=== PATIENT | female | born 1995 | race American Indian/Alaskan Native ===

== ENCOUNTER 2017-01-29 06:00 | Inpatient (IN) | payer MEDICAID, OTHER ==
[~2017-01-29 06:00] MED LIST: Acetaminophen 325 MG Tab PO PRN; Acetaminophen/oxyCODONE 325-5 MG Tab PO PRN; Carboprost Tromethamine 250 MCG/1 ML Amp IM ONE; Citric Acid/Sodium Citrate Solution 30 ML Cup PO ONE; Methylergonovine 0.2 MG/1 ML Amp IM PRN; Misoprostol 400 MCG (4 X 100 MCG TAB) RECTAL PRN; Naloxone 2 MG/2 ML Syringe IVPUSH PRN; Ondansetron 4 MG/2 ML SDV IV PRN; Oxytocin/Normal Saline 30 UNIT/500 ML BAG IV SCH; Simethicone 80 MG Tab.Chew PO PRN; ceFAZolin 2 GM in Premix Bag 1 BAG IV ONE; diphenhydrAMINE 50 MG/ML SDV IVPUSH PRN; ePHEDrine 50 MG/ML SDV IVPUSH PRN
[2017-01-29] MEDS ORDERED: Oxytocin/Normal Saline 60 UNIT/1,000 ML BAG ONE (06:28)
[2017-01-29] MEDS: Lactated Ringers 1,000 ML IV SCH ×4 (06:35→20:02)
[2017-01-29] MEDS ORDERED: fentaNYL 100 MCG/2 ML SDV ONE ×2 (07:22→10:20)
[2017-01-29] MEDS ORDERED: ePHEDrine 50 MG/ML SDV ONE (07:23)
[2017-01-29] MEDS ORDERED: Ondansetron 4 MG/2 ML SDV ONE (07:23)
[2017-01-29] MEDS ORDERED: Morphine PF 5 MG/10 ML SDV ONE (07:23)
[2017-01-29] MEDS ORDERED: Phenylephrine 1% 10 MG/ML SDV ONE ×2 (07:23→07:24)
[2017-01-29] MEDS ORDERED: Glycopyrrolate 0.2 MG/ML 2 ML SDV ONE (07:24)
[2017-01-29] MEDS ORDERED: Misoprostol 400 MCG (4 X 100 MCG TAB) ONE (08:25)
[2017-01-29] MEDS ORDERED: Carboprost Tromethamine 250 MCG/1 ML Amp ONE (08:25)
[2017-01-29] MEDS ORDERED: HYDROmorphone 1 MG/ML Syringe ONE (08:52)
[2017-01-29] MEDS ORDERED: Morphine PF 150 MG/30 ML PCA Syringe IV SCH (09:15)
[2017-01-29] MEDS ORDERED: Oxytocin/Normal Saline 30 UNIT/500 ML BAG IV ONE (09:29)
[2017-01-29] MEDS ORDERED: Lactated Ringers 1,000 ML IV ONE (10:20)
[2017-01-29] MEDS ORDERED: Morphine PF 5 MG/10 ML SDV ITHECAL ONE (10:20)
[2017-01-29] MEDS ORDERED: Carboprost Tromethamine 250 MCG/1 ML Amp IM ONE (10:20)
[2017-01-29] MEDS ORDERED: Glycopyrrolate 0.2 MG/ML 2 ML SDV IV ONE (10:20)
[2017-01-29] MEDS ORDERED: HYDROmorphone 1 MG/ML Syringe IV ONE (10:20)
[2017-01-29] MEDS ORDERED: Ketorolac 30 MG/ML SDV IVPUSH ONE (10:20)
[2017-01-29] MEDS ORDERED: ePHEDrine 50 MG/ML SDV IV ONE (10:20)
[2017-01-29] MEDS ORDERED: Ondansetron 4 MG/2 ML SDV IV ONE (10:20)
--- NOTE | 2017-01-29 14:50 | PCM.POSTAN ---
POST ANESTHESIA ASSESSMENT - MENTAL STATUS Mental Status: alert - VITAL SIGNS Pulse Rate: 67 SaO2: 100 Blood Pressure: 117/71 Temperature: 36.1 C - RESPIRATORY Respiratory Status: respiratory rate WNL - CARDIOVASCULAR CV Status: pulse rate WNL - GASTROINTESTINAL GI Status: nauseau - PAIN Pain Score: 2 - POST OP HYDRATION Hydration Status: adequate & stable (pt without c/o PDPH, c/o mild surgical site pain around 2/10 no meds requested. Mild nausea. No c/o back pain. Pt states she is satisfied with her anesthesia care. No post anesthesia complications noted.)
[2017-01-29] MEDS: Ketorolac 30 MG/ML SDV IVPUSH SCH ×2 (15:12→21:23)
--- NOTE | 2017-01-29 15:18 | OR ---
DATE: 01/29/2017 PREOPERATIVE DIAGNOSES: 1. Intrauterine at 39 and 3/7th weeks, confirmed with 8 and 6/7th week ultrasound. 2. Previous x1, request repeat low transverse . 3. Impaired glucose tolerance. 4. Rh negative. 5. Group B Streptococcus negative. 6. Close interval . 7. Anemia of with hemoglobin 8.5 upon admission. 8. G2, P1-0-0-1. 9. Keloid type scar-Pfannenstiel. POSTOPERATIVE DIAGNOSES: 1. Intrauterine at 39 and 3/7th weeks, confirmed with 8 and 6/7th week ultrasound-delivered. 2. Previous x1, request repeat low transverse 3. Impaired glucose tolerance. 4. Rh negative. 5. Group B Streptococcus negative. 6. Close interval . 7. Anemia of with hemoglobin 8.5 upon admission. 8. G2, P1-0-0-1. 9. Spinal anesthetic used with increasing pain shortly prior to delivery. Fentanyl 100 mcg was given less than a minute prior to delivery, and then after delivery required morphine for pain. 10.Scarring significantly superior to fascial layer. 11.Uterine atony, requiring Hemabate. PROCEDURE PERFORMED: NST and repeat low transverse . [employer] PROFESSOR: Jacquie Castellon MD and Sara Strong MS III. ANESTHESIA/ANALGESIA: Spinal followed by fentanyl within 1 minute of delivery and morphine after delivery. ESTIMATED BLOOD LOSS: 700 mL. IV FLUIDS: 1700 mL. URINE OUTPUT: 400 mL and clear yellow. START: 0815 hours. UTERINE INCISION: 0821 hours. DELIVERY: 0821 hours. STOP: 0842 hours. FINDING: Male, scores 8 and 9, weighing 9 pounds 5 ounces with extensive scar tissue superficial to the fascia. DESCRIPTION OF PROCEDURE IN DETAIL: After proper consent was obtained, the patient brought to the operating room, where spinal anesthetic was administered. A Arias was placed preop under sterile conditions. Abdomen was prepped and draped in normal sterile fashion, with the patient placed in the supine position with left lateral tilt. Skin testing was done with Allis clamps. No pain was felt. Subsequently, a skin incision was made on lower abdomen in transverse Pfannenstiel-type fashion over previous scar. This was carried down the fascia with significant scarring noted around the area and scored in midline. Subcutaneous tissue was raked laterally with Briggs retractor and fascial incision was extended in transverse fashion using curved Gerard's. Celestina clamps x2 were used to grasp the superior aspect of fashion and rectus muscles dissected from fascia using sharp blunt technique. In a similar fashion, Celestina clamps x2 were used to grasp the inferior portion and pyramidalis muscle was dissected from fascia using sharp and blunt technique. Rectus muscles were in the midline with blunt technique. Abdominal cavity was entered in blunt technique and incision was extended superiorly and inferiorly using blunt technique. Roberto O large retractor was then introduced and used. There was noted to be significant pain after getting through the fascial layer, fentanyl was given per [employer], less than a minute prior to delivery, I believe was 100 mcg. Please see his notes for further details. Vesicouterine peritoneum was then identified and incised in transverse fashion using Metzenbaum scissors and bladder flap was made digitally. A curvilinear incision was made on lower uterine segment at 0821 hours. Uterus was entered sharply and uterine incision was extended in transverse fashion using blunt technique. Bulging bag of water was ruptured with Allis clamps. vertex was then delivered through the incision followed by rest of the infant without difficulty. Mouth and nares were suctioned. Cord was doubly clamped cut and was brought over to team. Then, approximately 10 mL cord blood was obtained for labs. Placenta then delivered with gentle cord traction and fundal massage. Uterine cavity was then cleared of all blood clots and debris with lap sponge. Browning clamps were used to grasp the uterine incision, this was closed in a running locked fashion, tied at lateral margins with 1-0 Vicryl. During closing of the uterus, significant pain was noted and morphine was given per [employer]. Uterine atony was noted after closure of the uterus and Hemabate was called for and given. The uterus tone improved thereafter with serial exams. First inspection of the uterine incision revealed hemostasis. Roberto O retractor was then removed and paracolic gutters were then cleared of all blood clots and debris with lap sponge. Anterior cul-de-sac was then irrigated copiously and all blood clots were removed. Second and final inspection of the uterine incision and anterior cul-de-sac revealed hemostasis. Rectus muscles were then reapproximated in midline with [id number] stitch using 1-0 Vicryl. Subfascial tissue was found to be hemostatic. Fascia was closed in a running fashion, tied at lateral margin with 0 looped PDS. Subcutaneous tissue was irrigated copiously. Hemostasis was reassured. Skin was reapproximated with medium shane. Sterile Aquacel dressing was applied. Uterus fundus was firm and massaged at conclusion of the case at +1 above the umbilicus. No immediate complications were noted. Sponge, lap, and needle counts were correct. The patient received 2 g Ancef, Pitocin per protocol, and received Toradol at the conclusion of case for pain control. She also received pain control medications as noted above, fentanyl less than a minute prior to delivery and morphine thereafter. Please see [employer] notes for further details. Mother and are currently stable at the time of dictation. [facility] /[id number]
--- NOTE | 2017-01-29 15:24 | OBOUT ---
DATE: 01/29/2017 DATE AND TIME OF NST: DATE: 01/29/2017. TIME: 620 to 640. REASON FOR NST: 1. Intrauterine at 39 and 3/7th weeks, confirmed with 8 and 6/7th week ultrasound. 2. Previous x1, request repeat low transverse . 3. Impaired glucose tolerance. 4. Rh negative. 5. Group B Streptococcus negative. 6. Close interval . 7. G2, P1-0-0-1. 8. History of anemia in . NST INTERPRETATION: During this time period, heart tone baseline is approximately 125, and there are at least two 15 x 15-beat per minute accelerations, making this strip reactive, it is also noted to be reassuring. Tocometer reveals potential 2 to 3 contractions minimally felt by patient. ASSESSMENT: 1. Nonstress test-reactive and reassuring. 2. Tocometer with contractions. PLAN: Please see admit history and physical for further details with H and P to be updated with vital signs being 125/77, heart rate 93, temperature 98.2. Otherwise, we will proceed to the OR as soon as crew is ready and available. [facility] /[id number]
[2017-01-29] MEDS: Acetaminophen/oxyCODONE 325-5 MG Tab PO PRN (19:16)
[2017-01-30] MEDS: Acetaminophen/oxyCODONE 325-5 MG Tab PO PRN ×5 (00:22→23:19)
[2017-01-30] MEDS: Ketorolac 30 MG/ML SDV IVPUSH SCH (03:11)
[2017-01-30] MEDS: Lactated Ringers 1,000 ML IV SCH (08:41)
--- NOTE | 2017-01-30 10:34 | PN ---
DATE: 01/30/2017 Postop day #1, status post repeat low transverse SUBJECTIVE: I was called last night for a fever 103 to 101.6 around 9 or 10:30 last night. Subsequently, evaluations were done. The patient had some chills and sweats at that time. No other symptoms were elicited. Currently, the patient is resting quietly in her bed. Pain is under control. She describes being tired with recent Percocet use within the last 3 to 4 hours. The patient's last night evaluations white cell count 15.7, hemoglobin 5.8, platelets were 220,000. Patient received 2 units of packed red blood cells through the evening. Other investigation for postop fever revealed trace blood in the urinalysis, trace leukocyte esterase, 5 to 10 red cells and white cells per high-power field, moderate epithelial cells with moderate mucus, few bacteria. Chest x-ray was done, reviewed by my eyes, shows no obvious acute abnormality or infiltrates. Breast tissue does obscure some of the reading. OBJECTIVE: Vital Signs: This morning, temperature 99.5, heart rate between 99 to 111, blood pressure 115/54, respiratory rate 16. Lungs: Clear to auscultation bilaterally. Heart: S1 and S2. Regular rate and rhythm. Abdomen: Firm uterus +1 above the umbilicus. Aquacel dressing appears dry and intact. ELIAS hose are on. LABORATORY DATA: Labs noted as above, and pending is a CBC to be done later at around 11:30 due to first CBC being done pretty quickly after blood transfusion was given. I's and O's appear very adequate with last 6 hours putting out of 1200 mL. ASSESSMENT AND PLAN: 1. Postop day #1 status post repeat low transverse . 2. Postop fever, this was within 24 hours, has resolved at this point in time. We will continue to follow clinically and closely. Incentive spirometry will be used, and did discuss with the patient notifying if she has any other fevers, chills, or sweats, and further evaluation and management may be required at that point in time. The patient understands and agrees with the above treatment plan in regard to this. 3. Anemia of acute blood loss with hemoglobin dropping down to 5.8, now status post 2 units of packed red blood cells. We have 2 more units on hand that we can give her and may consider this after a CBC later this morning. She is currently asymptomatic. Her vital signs are stable. Urine output is adequate, and for her postop fever there is no obvious source, but has resolved, and we will continue to follow clinically and closely at this point in time. The patient understands and agrees with the above treatment plan. [facility] /[id number]
[2017-01-30] MEDS: Ibuprofen 800 MG Tab PO PRN (15:58)
[2017-01-30] MEDS: Docusate Sodium 100 MG Cap PO PRN (23:21)
[2017-01-31] MEDS: Acetaminophen/oxyCODONE 325-5 MG Tab PO PRN ×4 (03:22→19:57)
[2017-01-31] MEDS: Ibuprofen 800 MG Tab PO PRN ×2 (03:22→19:56)
--- NOTE | 2017-01-31 11:31 | PN ---
DATE: 01/31/2017 Postop day #2. SUBJECTIVE: The patient is feeling much better. She is tolerating POs, ambulating, urinating, passing flatus, no bowel movement. OBJECTIVE: She is now status post 4 units of packed red blood cells. PHYSICAL EXAMINATION: Vital Signs: Temperature 97.9, heart rate 85, blood pressure 132/76, respiratory rate is 16. Lungs: Clear to auscultation bilaterally. Heart: S1 and S2. Regular rate and rhythm. Abdomen: Firm uterus -2 below umbilicus. Aquacel dressing has some shadowing, but it is not actively bleeding. Extremities: Trace pedal edema. No calf pain. ELIAS hose on. LABORATORY DATA: White cell count 19; hemoglobin 10; platelets 198,000 and that was last night around 2357 hours. ASSESSMENT: 1. Postop day #2, status post repeat low transverse section with anemia of acute blood loss, hemoglobin dropping down to as low as 5.8, requiring 4 units of packed blood transfusions. At current time of dictation, the patient is doing well. 2. Postop fever within the 1st 24 hours. This has resolved. The patient is asymptomatic. No current symptoms are going on. Workup was done. We will continue to follow clinically and closely. PLAN: CBC later this morning and tomorrow morning, possible discharge tomorrow. Discussed with the patient, she understands and agrees with the above treatment plan. [facility] /[id number]
[2017-01-31] MEDS: Docusate Sodium 100 MG Cap PO PRN (19:57)
[2017-02-01] MEDS: Acetaminophen/oxyCODONE 325-5 MG Tab PO PRN ×2 (01:10→05:55)
[2017-02-01] MEDS: Ibuprofen 800 MG Tab PO PRN (05:55)
[2017-02-01 08:08] VITALS: BP 125/65
[2017-02-01] MEDS: Docusate Sodium 100 MG Cap PO PRN (09:11)
--- NOTE | 2017-02-05 09:19 | DISCH ---
ADMIT DIAGNOSES: 1. Intrauterine at 39-3/7th weeks, confirmed with 8-6/7th-week ultrasound. 2. Previous x1. Request for repeat low transverse . 3. Impaired glucose tolerance. 4. Rh negative. 5. Group B Streptococcus negative. 6. Close interval . 7. Anemia of with hemoglobin 8.5 upon admission. 8. 2, para 1-0-0-1. 9. Keloid-type scar-Pfannenstiel. DISCHARGE DIAGNOSES: 1. Intrauterine at 39-3/7th weeks, confirmed with 8-6/7th-week ultrasound-delivered. 2. Previous x1. Request repeat low transverse . 3. Impaired glucose tolerance. 4. Rh negative. 5. Group B Streptococcus negative. 6. Close interval . 7. Anemia of with hemoglobin 8.5, upon admission. 8. 2, para 1-0-0-1. 9. Keloid-type scar-Pfannenstiel. 10.Anemia of acute blood loss with hemoglobin dropping down to 5.8, requiring transfusion of 4 units of packed red blood cells. 11.Spinal anesthesia for the surgery with Fentanyl less than 1 minute prior to delivery with questionable pain control. 12.Some significant scarring superior to the fascial layer. 13.Uterine atony, requiring Hemabate. PROCEDURE PERFORMED: NST followed by repeat low transverse . HISTORY PRESENT ILLNESS: Please see H and P. SUMMARY OF HOSPITAL COURSE: The patient was admitted on the above date with the above diagnoses, underwent elective repeat low transverse under spinal anesthesia, yielding a male with scores 8 and 9, weighing 9 pounds 5 ounces complicated by uterine atony, requiring Hemabate as well as some scarring superficially to the fascial layer. She also did require some Fentanyl prior to delivery with questionable anesthesia with spinal given. Please see operative note for further details. Postop day #1 and #2, please see progress note. Postop day #3, date of discharge, the patient was tolerating POs, ambulating, urinating, passing flatus, requesting discharge. PHYSICAL EXAMINATION: Vital Signs: Last set of vitals updated and listed in the chart. Temperature 98.1, heart rate 87, blood pressure 125/65, respiratory rate 18. Lungs: Clear to auscultation bilaterally. HEART: S1, S2. Regular rate and rhythm. ABDOMEN: Firm uterus at around the -1 below umbilicus. The incision appears dry and intact with shane intact. Postop fever was noted within 24 hours. Blood cultures were done as well as urine cultures negative. CBC with manual diff, and chest x-ray non-significant was followed closely. No fevers developed thereafter. LABORATORY DATA: Labs on discharge; white cell count 15, hemoglobin 10, and platelets 216,000 on 01/31/2017, and stable. CONDITION ON DISCHARGE COMPARED TO CONDITION ON ADMISSION: Much improved. DISCHARGE INSTRUCTIONS: 1. Diet as tolerated. 2. Activity: No lifting more than 10 to 15 pounds. No sit-ups, straining, and pelvic rest for next 6 weeks with immediate return to fertility discussed with the patient. 3. Reasons to return or go to the emergency room were discussed with the patient in detail including, but not limited to, temperature greater than 100.4, foul-smelling discharge, red, hot tender breasts, or increased vaginal bleeding. DISCHARGE MEDICATIONS: 1. [id number] Tylenol or ibuprofen for pain. 2. Iron sulfate 325 mg b.i.d. x6 weeks. 3. Percocet 5/325 mg one to two q.6 hours p.r.n., #30, no refills. Discussed the use of this medication, adverse and wanted effects, as well precautions with driving. FOLLOWUP: Follow up on Saturday with her with one of my partners and follow up on with her infant for staple removal. I did discuss with her in the interim reasons to return or go to the emergency room in regard to her and the importance of followup discussed. [facility] /[id number]
== END 2017-02-01 11:05 | disposition home or self-care (01) | DRG 765 ==
LOC: DL.MS 06:00 → OBSVTOIN 08:21 → DL.MS 08:21
PROVIDERS: ADMIT Family Medicine; ATTEND Family Medicine
PROC: 10D00Z1 Extraction of Products of Conception, Low, Open Approach (ICD-10-PCS; principal; 2017-01-29)
PROC: 30233N1 Transfusion of Nonautologous Red Blood Cells into Peripheral Vein, Percutaneous Approach (ICD-10-PCS; 2017-01-29)
DX: O34.211 Maternal care for low transverse scar from previous cesarean delivery (principal); O72.1 Other immediate postpartum hemorrhage; O99.814 Abnormal glucose complicating childbirth; O99.02 Anemia complicating childbirth; L91.0 Hypertrophic scar; R50.82 Postprocedural fever; Z3A.39 39 weeks gestation of pregnancy; Z37.0 Single live birth
CPT/HCPCS: 01961; 36415; 36430; 71010; 81001; 85025; 85027; 85461; 86850; 86870; 86900; 86901; 86920; 86922; 87040; 87086; 94010; A9270-GY; J0690; J1170; J1885; J2274; J2405; J2590; J2790; J3010; J3490; J7120; P9016

== ENCOUNTER 2018-09-22 10:00 | Emergency (ER) | payer MEDICAID ==
[2018-09-22] MEDS ORDERED: diphenhydrAMINE 50 MG/ML SDV IVPUSH ONE (10:29)
[2018-09-22] MEDS ORDERED: Ketorolac 30 MG/ML SDV IVPUSH ONE (10:29)
[2018-09-22] MEDS ORDERED: Sodium Chloride 0.9% 1,000 ML IV ONE (10:29)
[2018-09-22] MEDS ORDERED: Sodium Chloride 0.9% 10 ML Syringe FLUSH PRN (10:29)
--- NOTE | 2018-09-22 10:31 | EDM.PDOC ---
ED HPI GENERAL MEDICAL PROBLEM - General Chief Complaint: Flank Pain Stated Complaint: UNKNOWN Time Seen by Provider: 09/22/18 10:29 Source of Information: Reports: Patient History Limitations: Reports: No Limitations - History of Present Illness INITIAL COMMENTS - FREE TEXT/NARRATIVE: Patient comes emergency Department today with complaint of right flank pain. A couple of hours ago the patient suddenly developed right-sided flank pain. Pain is sharp shooting stabbing and waves of pain. She's never had any pain like this before. No hematuria dysuria or urinary frequency. No fever no chills. No other abdominal pain. Her last period was last month. No black or bloody stools. No shortness of breath or difficulty breathing. No chest pain. Right Flank Pain Score (Numeric/FACES): 10 - Related Data Allergies Allergy/AdvReac Type Severity Reaction Status Date / Time No Known Allergies Allergy Verified 09/22/18 10:21 Home Meds: Home Meds Tamsulosin [Flomax] 0.4 mg PO DAILY #10 cap.er 09/22/18 [Rx] Past Medical History - Past Health History Medical/Surgical History: Denies Medical/Surgical History HEENT History: Reports: Impaired Vision Cardiovascular History: Reports: None Respiratory History: Reports: None Gastrointestinal History: Reports: None Genitourinary History: Reports: None BEATER LEAD History: Reports: , Other (See Below) Other BEATER LEAD History: 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 Musculoskeletal History: Reports: None Neurological History: Reports: None Psychiatric History: Reports: Anxiety, Suicide Attempt, Suicidal Ideation Endocrine/Metabolic History: Reports: None Hematologic History: Reports: None Immunologic History: Reports: None Oncologic (Cancer) History: Reports: None Dermatologic History: Reports: None - Infectious Disease History Infectious Disease History: Reports: Chicken Pox - Past Surgical History Head Surgeries/Procedures: Reports: None Social & Family History - Family History Family Medical History: Noncontributory - Caffeine Use Caffeine Use: Reports: None ED ROS GENERAL - Review of Systems Review Of Systems: ROS reveals no pertinent complaints other than HPI. ED EXAM, RENAL/ - Physical Exam Exam: See Below Text/Narrative:: She is tearful and moaning in pain when I enter the room Exam Limited By: No Limitations General Appearance: Alert, WD/WN, No Apparent Distress Ears: Normal External Exam, Normal Canal, Normal TMs Nose: Normal Inspection, Normal Mucosa Throat/Mouth: Normal Inspection, Normal Lips, Normal Oropharynx, Normal Voice Head: Atraumatic, Normocephalic Neck: Normal Inspection, Supple Respiratory/Chest: No Respiratory Distress, Lungs Clear, Normal Breath Sounds, No Accessory Muscle Use Cardiovascular: Normal Peripheral Pulses, Regular Rate, Rhythm GI/Abdominal: Normal Bowel Sounds, Soft, Non-Tender, No Distention Back Exam: CVA Tenderness (L). No: CVA Tenderness (R), Muscle Spasm, Paraspinal Tenderness, Vertebral Tenderness Extremities: Normal Inspection, Normal Range of Motion, Non-Tender, Normal Capillary Refill Neurological: Alert, Oriented, CN II-XII Intact Psychiatric: Normal Affect, Normal Mood Skin Exam: Warm, Dry, Intact, Normal Color, No Rash Lymphatic: No Adenopathy Course - Vital Signs Last Recorded V/S: Last Vital Signs Temp 36.6 C 09/22/18 10:21 Pulse 60 09/22/18 12:13 Resp 14 09/22/18 12:13 BP 108/62 09/22/18 12:13 Pulse Ox 100 09/22/18 12:13 - Orders/Labs/Meds Orders: Active Orders 24 hr Category Date Time Status Peripheral IV Care [RC] . DIRECTED Care 09/22/18 10:29 Active Peripheral IV Insertion Adult [OM.PC] Stat Oth 09/22/18 10:29 Ordered Labs: Laboratory Tests 09/22/18 09/22/18 09/22/18 Range/Units 10:17 10:20 10:20 WBC 8.0 (5.0-10.0) 10^3/uL RBC 4.49 (4.2-5.4) 10^6/uL Hgb 13.5 (12.0-16.0) g/dL Hct 39.8 (37.0-47.0) % MCV 88.6 (80-100) fL MCH 30.1 (27.0-34.0) pg MCHC 33.9 (33.0-35.0) g/dL Plt Count 257 (150-450) 10^3/uL Neut % (Auto) 58.7 (42.2-75.2) % Lymph % (Auto) 29.0 (20.5-50.1) % [place] % (Auto) 10.0 H (2-8) % Eos % (Auto) 2.2 (1.0-3.0) % Baso % (Auto) 0.1 (0.0-1.0) % Sodium (135-145) mmol/L Potassium (3.6-5.0) mmol/L Chloride (101-111) mmol/L Carbon Dioxide (21.0-31.0) mmol/L Anion Gap BUN (7-18) mg/dL Creatinine (0.6-1.3) mg/dL Est Cr Clr Drug Dosing mL/min Estimated GFR (MDRD) BUN/Creatinine Ratio Glucose (74-105) mg/dL Calcium (8.4-10.2) mg/dl Total Bilirubin (0.2-1.0) mg/dL AST (10-42) IU/L ALT (10-60) IU/L Alkaline Phosphatase (42-121) IU/L Total Protein (6.7-8.2) g/dl Albumin (3.2-5.5) g/dl Globulin Albumin/Globulin Ratio Urine Color Yellow (YELLOW) Urine Appearance Slightly cloudy (CLEAR) Urine pH 6.0 (5.0-9.0) Ur Specific [place] >= 1.030 (1.005-1.030) Urine Protein 30 H (NEGATIVE) Urine Glucose (UA) Negative (NEGATIVE) Urine Ketones Negative (NEGATIVE) Urine Occult Blood Large H (NEGATIVE) Urine Nitrite Negative (NEGATIVE) Urine Bilirubin Negative (NEGATIVE) Urine Urobilinogen 2.0 H (0.2-1.0) mg/dL Ur Leukocyte Esterase Trace H (NEGATIVE) Urine RBC 40-50 H /HPF Urine WBC 0-5 (0-5/HPF) /HPF Ur Epithelial Cells Many H /HPF Urine Bacteria Few (0-FEW/HPF) /HPF Urine Mucus Moderate H /LPF Urine HCG, Qual Negative 09/22/18 Range/Units 10:20 WBC (5.0-10.0) 10^3/uL RBC (4.2-5.4) 10^6/uL Hgb (12.0-16.0) g/dL Hct (37.0-47.0) % MCV (80-100) fL MCH (27.0-34.0) pg MCHC (33.0-35.0) g/dL Plt Count (150-450) 10^3/uL Neut % (Auto) (42.2-75.2) % Lymph % (Auto) (20.5-50.1) % [place] % (Auto) (2-8) % Eos % (Auto) (1.0-3.0) % Baso % (Auto) (0.0-1.0) % Sodium 135 (135-145) mmol/L Potassium 3.2 L (3.6-5.0) mmol/L Chloride 102 (101-111) mmol/L Carbon Dioxide 21.0 (21.0-31.0) mmol/L Anion Gap 15.2 BUN 10 (7-18) mg/dL Creatinine 0.8 (0.6-1.3) mg/dL Est Cr Clr Drug Dosing 93.64 mL/min Estimated GFR (MDRD) > 60 BUN/Creatinine Ratio 12.50 Glucose 98 (74-105) mg/dL Calcium 9.0 (8.4-10.2) mg/dl Total Bilirubin 0.8 (0.2-1.0) mg/dL AST 22 (10-42) IU/L ALT 12 (10-60) IU/L Alkaline Phosphatase 63 (42-121) IU/L Total Protein 7.7 (6.7-8.2) g/dl Albumin 4.4 (3.2-5.5) g/dl Globulin 3.3 Albumin/Globulin Ratio 1.33 Urine Color (YELLOW) Urine Appearance (CLEAR) Urine pH (5.0-9.0) Ur Specific [place] (1.005-1.030) Urine Protein (NEGATIVE) Urine Glucose (UA) (NEGATIVE) Urine Ketones (NEGATIVE) Urine Occult Blood (NEGATIVE) Urine Nitrite (NEGATIVE) Urine Bilirubin (NEGATIVE) Urine Urobilinogen (0.2-1.0) mg/dL Ur Leukocyte Esterase (NEGATIVE) Urine RBC /HPF Urine WBC (0-5/HPF) /HPF Ur Epithelial Cells /HPF Urine Bacteria (0-FEW/HPF) /HPF Urine Mucus /LPF Urine HCG, Qual Meds: Medications Discontinued Medications Generic Name Dose Route Start Last Admin Trade Name Freq PRN Reason Stop Dose Admin Diphenhydramine HCl 25 mg 09/22/18 10:29 09/22/18 10:34 Benadryl IVPUSH 09/22/18 10:30 25 mg ONETIME ONE Administration Sodium Chloride 1,000 mls @ 999 mls/hr 09/22/18 10:29 09/22/18 10:34 Normal Saline IV 09/22/18 11:29 999 mls/hr .BOLUS ONE Administration Ketorolac Tromethamine 30 mg 09/22/18 10:29 09/22/18 10:34 Toradol IVPUSH 09/22/18 10:30 30 mg ONETIME ONE Administration Morphine Sulfate 4 mg 09/22/18 12:02 09/22/18 12:09 Morphine IVPUSH 09/22/18 12:03 4 mg ONETIME ONE Administration Sodium Chloride 10 ml 09/22/18 10:29 09/22/18 10:35 Saline Flush FLUSH 10 ml ASDIRECTED PRN Administration Keep Vein Open Tamsulosin HCl 0.4 mg 09/22/18 11:54 09/22/18 12:09 Flomax PO 09/22/18 11:55 0.4 mg ONETIME ONE Administration - Radiology Interpretation Free Text/Narrative:: bilateral nephrolithiasis with obstructing stone. - Re-Assessments/Exams Free Text/Narrative Re-Assessment/Exam: 09/22/18 10:31 IV normal saline 1 L wide open. Ketorolac 30 mg IV push. Benadryl 25 mg IV push. 09/22/18 19:40 THe patients pain much improved following the above therapy. She sought some residual pain which morphine resolved. She is tolerating oral fluids. Her laboratory evaluation is rather unremarkable despite the noted obstructed stone on the right ureter with bilateral nephrolithiasis. Kidney function at this time and no evidence of hydronephrosis per radiological review. Her pain is much improved we'll discharge her home at this time with close follow-up if her pain is not improving she needs to be reevaluated for this kidney stone that is causing some obstruction. wendy is comfortable with this plan and her questions were answered. Departure - Departure Time of Disposition: 11:55 Disposition: Home, Self-Care 01 Clinical Impression: Bilateral nephrolithiasis - Discharge Information Prescriptions: Tamsulosin [Flomax] 0.4 mg PO DAILY #10 cap.er Instructions: Renal Colic, [id number], Kidney Stones, [id number], Pain Medicine Instructions, [id number] Referrals: Gonzalo Chapa MD [Primary Care Provider] - Forms: ED Department Discharge Additional Instructions: Lots of fluids over the next few days. Tylenol and or Ibuprofen as needed for pain. Flomax 1 capsule daily for the next 10 days. RX given to the patient. If pain not controlled with above. [place] 5/325, 1 tablet every 4 hrs with food as needed for pain. Caution sedation. Return to the ED if new or worsening symptoms. Follow up with PCP in the next 2-3 days if not improving sooner if worse. - Problem List Review Problem List Initiated/Reviewed/Updated: Yes - My Orders Last 24 Hours: My Active Orders 09/22/18 10:29 Peripheral IV Care [RC] . DIRECTED Peripheral IV Insertion Adult [OM.PC] Stat - Assessment/Plan Last 24 Hours: My Active Orders 09/22/18 10:29 Peripheral IV Care [RC] . DIRECTED Peripheral IV Insertion Adult [OM.PC] Stat Assessment:: Bilateral nephrolithiasis. No hydro- Plan: Lots of fluids over the next few days. Tylenol and or Ibuprofen as needed for pain. Flomax 1 capsule daily for the next 10 days. RX given to the patient. If pain not controlled with above. [place] 5/325, 1 tablet every 4 hrs with food as needed for pain. Caution sedation. Return to the ED if new or worsening symptoms. Follow up with PCP in the next 2-3 days if not improving sooner if worse.
[2018-09-22 10:49] LABS: ANION GAP 15.2; CHLORIDE,CL 102 mmol/L (101-111); SODIUM,NA 135 mmol/L (135-145)
--- NOTE | 2018-09-22 11:42 | CT ---
Clinical history: 23-year-old female with right flank pain and hematuria. Scan technique: Volume acquisition of data emergency unenhanced CT scan of the abdomen and pelvis (kidneys/ureters/bladder) obtained while the patient was lying supine on the Siemens multi slice scanner [place], [place]. All data archived in the PACS system for storage, reformatting axial/sagittal/coronal planes and study. Interpretation: Abnormal. 1. Solitary 3.4 mm diameter round calculus lodged distal right ureter at the bladder trigone with associated, ipsilateral, dilatation of the proximal right ureter and pyelocalyceal calyceal system right kidney. 2. Dense calyces throughout and 2 additional discrete tiny 1-2 mm diameter calcifications identified in the lower pole calyces contralateral left kidney. No sign of obstructive uropathy (pyelocaliectasis/ureterectasis) left kidney or collecting system. 3. Asymmetrically distended urinary bladder without intraluminal calculus. No calcifications in the urethra. 4. Uterus and ovaries unremarkable. No pelvic or abdominal mass lesion, mesenteric/retroperitoneal lymphadenopathy, inflammatory "dirty" peritoneal fat, signs of mechanical bowel obstruction, ascites or free intraperitoneal air. 5. Lung bases clear. CONCLUSION: High-grade obstructive uropathy, on the right, associated with impacted 3.4 mm distal right ureteral stone. Bilateral nephrolithiasis.
[2018-09-22] MEDS ORDERED: Tamsulosin 0.4 MG Cap.ER PO ONE (11:54)
[2018-09-22] MEDS ORDERED: Morphine 4 MG/ML Syringe IVPUSH ONE (12:02)
[2018-09-22 12:14] VITALS: BP 108/62
== END 2018-09-22 12:34 | disposition home or self-care (01) ==
LOC: DL.ED 10:00
DX: N20.2 Calculus of kidney with calculus of ureter (principal)
CPT/HCPCS: 36415; 74176; 80053; 81001; 81025; 85025; 96361; 96374; 96375; 99284; A9270; J1200; J1885; J2270; J7030

== ENCOUNTER 2019-01-28 20:42 | Emergency (ER) | payer MEDICAID ==
[2019-01-28] MEDS ORDERED: Sodium Chloride 0.9% 1,000 ML IV ONE (20:51)
[2019-01-28 20:52] VITALS: BP 117/69
[2019-01-28 21:31] LABS: ANION GAP 13.3; CHLORIDE,CL 102 mmol/L (101-111); SODIUM,NA 132 mmol/L (135-145)
[2019-01-28] MEDS ORDERED: cefTRIAXone 1 GM in Sodium Chloride 0.9% 50 ML IV ONE (21:40)
[2019-01-28] MEDS ORDERED: Ketorolac 30 MG/ML SDV IVPUSH ONE (21:40)
[2019-01-28] MEDS ORDERED: Ondansetron 4 MG/2 ML SDV IV ONE (21:41)
--- NOTE | 2019-01-28 21:55 | EDM.PDOC ---
"ED HPI GENERAL MEDICAL PROBLEM - General Chief Complaint: Flank Pain Stated Complaint: IN A LOT OF PAIN Time Seen by Provider: 01/28/19 20:55 Source of Information: Reports: Patient History Limitations: Reports: No Limitations - History of Present Illness INITIAL COMMENTS - FREE TEXT/NARRATIVE: ED with c/o fever, bilateral flank pain, Hx kidney stones in past but pain different today. More right upper chest below armpit, worse iwht movment, and across upper abdomen. Right Axillary Pain Score (Numeric/FACES): 7 Left Flank Pain Score (Numeric/FACES): 7 - Related Data Allergies Allergy/AdvReac Type Severity Reaction Status Date / Time No Known Allergies Allergy Verified 01/28/19 20:55 Home Meds: Home Meds . [No Known Home Meds] 01/28/19 [History] Past Medical History - Past Health History Medical/Surgical History: Denies Medical/Surgical History HEENT History: Reports: Impaired Vision Cardiovascular History: Reports: None Respiratory History: Reports: None Gastrointestinal History: Reports: None Genitourinary History: Reports: Renal Calculus KNIFE CUTTER History: Reports: , Other (See Below) Other KNIFE CUTTER History: ASCUS wi high risk HPV Musculoskeletal History: Reports: None Neurological History: Reports: None Psychiatric History: Reports: Anxiety, Suicide Attempt, Suicidal Ideation Endocrine/Metabolic History: Reports: None Hematologic History: Reports: None Immunologic History: Reports: None Oncologic (Cancer) History: Reports: None Dermatologic History: Reports: None - Infectious Disease History Infectious Disease History: Reports: Chicken Pox - Past Surgical History Head Surgeries/Procedures: Reports: None Female Surgical History: Reports: Section Social & Family History - Family History Family Medical History: Noncontributory - Tobacco Use Smoking Status *Q: Unknown Ever Smoked Second Hand Smoke Exposure: Yes - Caffeine Use Caffeine Use: Reports: None - Recreational Drug Use Recreational Drug Use: No ED ROS GENERAL - Review of Systems Review Of Systems: ROS reveals no pertinent complaints other than HPI. Constitutional: Reports: Malaise, Diaphoresis, Decreased Appetite HEENT: Reports: No Symptoms Respiratory: Reports: No Symptoms Cardiovascular: Reports: No Symptoms GI/Abdominal: Reports: Abdominal Pain, Decreased Appetite : Reports: Flank Pain. Denies: Dysuria, Frequency, Urgency Skin: Reports: No Symptoms Neurological: Reports: Headache (pressure type, no photosensitivity, dull constant) Psychiatric: Reports: No Symptoms ED EXAM, GI/ABD - Physical Exam Exam: See Below Exam Limited By: No Limitations General Appearance: Alert, Mild Distress Eyes: Bilateral: EOMI Ears: Normal External Exam, Normal TMs Nose: Normal Inspection Throat/Mouth: Normal Inspection, Normal Lips, Normal Oropharynx Head: Atraumatic, Normocephalic Neck: Normal Inspection. No: Lymphadenopathy (L), Lymphadenopathy (R) Respiratory/Chest: No Respiratory Distress, Lungs Clear, Normal Breath Sounds Cardiovascular: Normal Peripheral Pulses, Regular Rate, Rhythm GI/Abdominal Exam: Soft, Tender (epigastic below ribs bilaterally.) Back Exam: CVA Tenderness (L) Extremities: Normal Inspection, Normal Range of Motion Neurological: Alert, Oriented, Normal Cognition Psychiatric: Flat Affect Skin Exam: Warm, Dry, Intact, Normal Color Course - Vital Signs Last Recorded V/S: Last Vital Signs Temp 97.5 F 01/28/19 22:53 Pulse 109 H 01/28/19 20:51 Resp 22 H 01/28/19 20:51 BP 117/69 01/28/19 20:51 Pulse Ox 100 01/28/19 20:51 - Orders/Labs/Meds Orders: Active Orders 24 hr Category Date Time Status CULTURE URINE [RM] Urgent Lab 01/28/19 20:53 Received Labs: Laboratory Tests 01/28/19 01/28/19 01/28/19 Range/Units 20:53 21:02 21:02 WBC 15.6 H (5.0-10.0) 10^3/uL RBC 4.32 (4.2-5.4) 10^6/uL Hgb 12.9 (12.0-16.0) g/dL Hct 38.4 (37.0-47.0) % MCV 88.9 (80-100) fL MCH 29.9 (27.0-34.0) pg MCHC 33.6 (33.0-35.0) g/dL Plt Count 220 (150-450) 10^3/uL Neut % (Auto) 72.5 (42.2-75.2) % Lymph % (Auto) 11.7 L (20.5-50.1) % [place] % (Auto) 15.5 H (2-8) % Eos % (Auto) 0.2 L (1.0-3.0) % Baso % (Auto) 0.1 (0.0-1.0) % Sodium 132 L (135-145) mmol/L Potassium 3.3 L (3.6-5.0) mmol/L Chloride 102 (101-111) mmol/L Carbon Dioxide 20.0 L (21.0-31.0) mmol/L Anion Gap 13.3 BUN 11 (7-18) mg/dL Creatinine 0.7 (0.6-1.3) mg/dL Est Cr Clr Drug Dosing 107.01 mL/min Estimated GFR (MDRD) > 60 BUN/Creatinine Ratio 15.71 Glucose 103 (74-105) mg/dL Lactic Acid (0.5-2.2) mmol/L Calcium 8.4 (8.4-10.2) mg/dl Total Bilirubin 1.3 H (0.2-1.0) mg/dL AST 17 (10-42) IU/L ALT 12 (10-60) IU/L Alkaline Phosphatase 54 (42-121) IU/L Total Protein 7.7 (6.7-8.2) g/dl Albumin 3.8 (3.2-5.5) g/dl Globulin 3.9 Albumin/Globulin Ratio 0.97 Amylase 33 (28-100) U/L Lipase 25 (22-51) U/L HCG, Qual Negative Urine Color Red (YELLOW) Urine Appearance Cloudy (CLEAR) Urine pH 6.0 (5.0-9.0) Ur Specific [place] 1.025 (1.005-1.030) Urine Protein 100 H (NEGATIVE) Urine Glucose (UA) Negative (NEGATIVE) Urine Ketones >=160 H (NEGATIVE) Urine Occult Blood Large H (NEGATIVE) Urine Nitrite Positive H (NEGATIVE) Urine Bilirubin Moderate H (NEGATIVE) Urine Urobilinogen 2.0 H (0.2-1.0) mg/dL Ur Leukocyte Esterase Small H (NEGATIVE) Urine RBC Semi-packed H /HPF Urine WBC 10-20 H (0-5/HPF) /HPF Ur Epithelial Cells Moderate H (NOT SEEN) /HPF Urine Bacteria Many H (0-FEW/HPF) /HPF 01/28/19 Range/Units 21:02 WBC (5.0-10.0) 10^3/uL RBC (4.2-5.4) 10^6/uL Hgb (12.0-16.0) g/dL Hct (37.0-47.0) % MCV (80-100) fL MCH (27.0-34.0) pg MCHC (33.0-35.0) g/dL Plt Count (150-450) 10^3/uL Neut % (Auto) (42.2-75.2) % Lymph % (Auto) (20.5-50.1) % [place] % (Auto) (2-8) % Eos % (Auto) (1.0-3.0) % Baso % (Auto) (0.0-1.0) % Sodium (135-145) mmol/L Potassium (3.6-5.0) mmol/L Chloride (101-111) mmol/L Carbon Dioxide (21.0-31.0) mmol/L Anion Gap BUN (7-18) mg/dL Creatinine (0.6-1.3) mg/dL Est Cr Clr Drug Dosing mL/min Estimated GFR (MDRD) BUN/Creatinine Ratio Glucose (74-105) mg/dL Lactic Acid 0.7 (0.5-2.2) mmol/L Calcium (8.4-10.2) mg/dl Total Bilirubin (0.2-1.0) mg/dL AST (10-42) IU/L ALT (10-60) IU/L Alkaline Phosphatase (42-121) IU/L Total Protein (6.7-8.2) g/dl Albumin (3.2-5.5) g/dl Globulin Albumin/Globulin Ratio Amylase (28-100) U/L Lipase (22-51) U/L HCG, Qual Urine Color (YELLOW) Urine Appearance (CLEAR) Urine pH (5.0-9.0) Ur Specific [place] (1.005-1.030) Urine Protein (NEGATIVE) Urine Glucose (UA) (NEGATIVE) Urine Ketones (NEGATIVE) Urine Occult Blood (NEGATIVE) Urine Nitrite (NEGATIVE) Urine Bilirubin (NEGATIVE) Urine Urobilinogen (0.2-1.0) mg/dL Ur Leukocyte Esterase (NEGATIVE) Urine RBC /HPF Urine WBC (0-5/HPF) /HPF Ur Epithelial Cells (NOT SEEN) /HPF Urine Bacteria (0-FEW/HPF) /HPF Meds: Medications Discontinued Medications Generic Name Dose Route Start Last Admin Trade Name Freq PRN Reason Stop Dose Admin Acetaminophen 650 mg 01/28/19 23:06 01/28/19 23:12 Tylenol PO 01/28/19 23:07 650 mg NOW ONE Administration Sodium Chloride 1,000 mls @ 999 mls/hr 01/28/19 20:51 01/28/19 21:07 Normal Saline IV 01/28/19 21:51 999 mls/hr .BOLUS ONE Administration Ceftriaxone Sodium 1 gm/ 50 mls @ 50 mls/hr 01/28/19 21:40 01/28/19 21:51 Sodium Chloride IV 01/28/19 22:39 50 mls/hr ONETIME ONE Administration Ketorolac Tromethamine 30 mg 01/28/19 21:40 01/28/19 21:49 Toradol IVPUSH 01/28/19 21:41 30 mg ONETIME ONE Administration Ondansetron HCl 4 mg 01/28/19 21:41 01/28/19 21:47 Zofran IV 01/28/19 21:42 4 mg ONETIME ONE Administration - Radiology Interpretation Free Text/Narrative:: [facility] Final Radiology Report Call: [phone] assistance Online chat: [email or web address] Name: MALISSA SMITH Age: 23Years F Date: 01/28/2019 SSN: -- : [id number] Study: CT ABDOMEN/PELVIS WO Requesting Physician: KIMBERLEY MOE Images: [id number] Addl Studies: Provided Clinical History: Contrast: Without Contrast Medium: Contrast Amount: Contrast Method: Page 1 of 2 EXAM: CT Abdomen and Pelvis Without Contrast EXAM DATE/TIME: 01/28/2019 10:02 PM CLINICAL HISTORY: 23 years old, female; Other: Left flank pain, HX kidney stones; Prior surgery; Surgery date: 6+ months; Surgery type: HX of c section TECHNIQUE: Imaging protocol: Axial computed tomography images of the abdomen and pelvis without contrast. Coronal and sagittal reformatted images were created and reviewed. Radiation optimization: All CT scans at this facility use at least one of these dose optimization techniques: automated exposure control; mA and/or kV adjustment per patient size (includes targeted exams where dose is matched to clinical indication); or iterative reconstruction. COMPARISON: CT Abdomen Pelvis wo Cont 09/22/2018 11:13 AM FINDINGS: Lungs: There are no suspicious pulmonary nodules or areas of lung consolidation. ABDOMEN: Liver: The liver is normal in architecture, without suspicious abnormality. Gallbladder and bile ducts: No calcified gallstones. No ductal dilation. Pancreas: The pancreatic parenchyma is normal in bulk and sharply marginated. Duct is not dilated. No calcifications, masses, or abnormal fluid collections. Spleen: Spleen is normal in size. No mass or fluid collection. Adrenals: There are no adrenal masses. MALISSA SMITH | Final Radiology Report CONFIDENTIALITY STATEMENT This report is intended only for use by the referring physician, and only in accordance with law. If you received this in error, call [phone]. Page 2 of 2 Kidneys and ureters: Normal right kidney. Mild left hydronephrosis and perinephric stranding. There are 2 small nonobstructing calcifications of the left renal sinus. No ureteral calculi. No mass. Stomach and bowel: No significant abnormalities of the stomach. There are no dilated or thickened small bowel loops. Gas and stool of appropriate quantities are seen in the colon. No mass. Appendix: The appendix is seen. It is normal. PELVIS: Bladder: Bladder contains a small amount of urine. Wall appears eccentrically thickened. This could be from nondistention, cystitis, or other. Reproductive: The uterus and ovaries are within normal limits. There are no adenexal masses. ABDOMEN and PELVIS: Intraperitoneal space: There is no pneumoperitoneum, abscess, ascites or mass. Bones/joints: Age appropriate. No acute fracture. No dislocation. Soft tissues: Unremarkable. Vasculature: Normal. No abdominal aortic aneurysm. Lymph nodes: Normal. No enlarged lymph nodes. IMPRESSION: 1. Bladder contains a small amount of urine. Wall appears eccentrically thickened. This could be from nondistention, cystitis, or other. 2. Findings may indicate left pyelonephritis or a recently passed left kidney stone. Thank you for allowing us to participate in the care of your patient. Dictated and Authenticated by: Moose Ayala MD 01/28/2019 10:47 PM Central Time ([place] & [place] Departure - Departure Time of Disposition: 23:01 Disposition: Home, Self-Care 01 Condition: Good Clinical Impression: Pyelonephritis, Renal calculi - Discharge Information *PRESCRIPTION DRUG MONITORING PROGRAM REVIEWED*: No Instructions: Pyelonephritis, Adult Referrals: Gonzalo Chapa MD [Primary Care Provider] - Forms: ED Department Discharge Additional Instructions: increase fluids cipro 500 mg one twice daily for one week alternate tylenol and ibuprofen for discomfort/ fever zofran 4mg ODT one q 6 hours as needed for nausea recheck clinic next week, doug if symptoms worsen - My Orders Last 24 Hours: My Active Orders 01/28/19 20:53 CULTURE URINE [RM] Urgent - Assessment/Plan Last 24 Hours: My Active Orders 01/28/19 20:53 CULTURE URINE [RM] Urgent"
[2019-01-28] MEDS ORDERED: Acetaminophen 325 MG Tab PO ONE (23:06)
== END 2019-01-28 23:18 | disposition home or self-care (01) ==
LOC: DL.ED 20:42
DX: N12 Tubulo-interstitial nephritis, not specified as acute or chronic (principal); N13.2 Hydronephrosis with renal and ureteral calculous obstruction; Z77.22 Contact with and (suspected) exposure to environmental tobacco smoke (acute) (chronic)
CPT/HCPCS: 36415; 74176; 80053; 81001; 82150; 83605; 83690; 84703; 85025; 87086; 87088; 87186; 96361; 96365; 96375; 99284; A9270; J0696; J1885; J2405; J7030; J7050

== ENCOUNTER 2019-02-16 08:28 | Day surgery (SDC) | payer MEDICAID ==
--- NOTE | 2019-02-16 08:46 | EDM.PDOC ---
"ED HPI GENERAL MEDICAL PROBLEM - General Chief Complaint: Flank Pain Stated Complaint: SHARP PAIN IN LOWER STOMACH Time Seen by Provider: 02/16/19 08:46 Source of Information: Reports: Patient, Old Records, RN, RN Notes Reviewed History Limitations: Reports: No Limitations - History of Present Illness INITIAL COMMENTS - FREE TEXT/NARRATIVE: Pt presents to ER from home by POV with c/o onset of right sided abdominal pain yesterday. Last night the pain increased and moved to the Rt flank and RLQ of the abdomen. Pt admits to mild nausea and decreased appetite. She denies hematuria, radiating pain, fever, chills, vomiting, diarrhea, constipation, vaginal discharge, or dysuria. Pt reports Hx of UTI's, pyelonephritis, HPV, and kidney stones. Denies . Onset: Gradual Onset Date: 02/15/19 Duration: Constant, Getting Worse Location: Reports: Abdomen, Back Quality: Reports: Ache Severity: Severe Improves with: Reports: None Worsens with: Reports: None Associated Symptoms: Reports: No Other Symptoms Right Flank Pain Score (Numeric/FACES): 8 - Related Data Allergies Allergy/AdvReac Type Severity Reaction Status Date / Time No Known Allergies Allergy Verified 02/16/19 08:35 Home Meds: Home Meds . 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 Musculoskeletal History: Reports: None Neurological History: Reports: None Psychiatric History: Reports: Anxiety, Suicide Attempt, Suicidal Ideation Endocrine/Metabolic History: Reports: None Hematologic History: Reports: None Immunologic History: Reports: None Oncologic (Cancer) History: Reports: None Dermatologic History: Reports: None - Infectious Disease History Infectious Disease History: Reports: Chicken Pox - Past Surgical History Head Surgeries/Procedures: Reports: None Female Surgical History: Reports: Section Social & Family History - Family History Family Medical History: Noncontributory - Tobacco Use Smoking Status *Q: Never Smoker Second Hand Smoke Exposure: No - Caffeine Use Caffeine Use: Reports: Coffee, Energy Drinks, Soda, Tea - Recreational Drug Use Recreational Drug Use: No - Living Situation & Occupation Living situation: Reports: with Family ED ROS GENERAL - Review of Systems Review Of Systems: ROS reveals no pertinent complaints other than HPI. ED EXAM, RENAL/ - Physical Exam Exam: See Below Exam Limited By: No Limitations General Appearance: Alert, WD/WN, No Apparent Distress Nose: Normal Inspection Throat/Mouth: Normal Inspection, Normal Voice, No Airway Compromise Head: Atraumatic, Normocephalic Neck: Normal Inspection Respiratory/Chest: No Respiratory Distress, Lungs Clear, Normal Breath Sounds, No Accessory Muscle Use, Chest Non-Tender Cardiovascular: Regular Rate, Rhythm GI/Abdominal: Normal Bowel Sounds, Soft, No Organomegaly, No Distention, No Abnormal Bruit, No Mass, Rebound (at RLQ), Tender (RLQ). No: Guarding, Rigid (Female) Exam: Deferred Rectal (Female) Exam: Deferred Back Exam: Full Range of Motion, CVA Tenderness (R). No: CVA Tenderness (L), Paraspinal Tenderness, Vertebral Tenderness Extremities: Normal Inspection Neurological: Alert, Oriented, Normal Cognition, No Motor/Sensory Deficits Psychiatric: Normal Affect, Normal Mood Skin Exam: Warm, Dry, Intact, Normal Color, No Rash Course - Vital Signs Last Recorded V/S: Last Vital Signs Temp 99.9 F 02/16/19 08:38 Pulse 60 02/16/19 08:38 Resp 16 02/16/19 08:38 BP 121/77 02/16/19 08:38 Pulse Ox 99 02/16/19 08:38 - Orders/Labs/Meds Orders: Active Orders 24 hr Category Date Time Status Peripheral IV Care [RC] . DIRECTED Care 02/16/19 08:53 Active Abdomen Pelvis w wo Cont [CT] Urgent Exams 02/16/19 09:42 Taken Sodium Chloride 0.9% [Saline Flush] Med 02/16/19 08:53 Active 10 ml FLUSH ASDIRECTED PRN Peripheral IV Insertion Adult [OM.PC] Stat Oth 02/16/19 08:53 Ordered Medication Orders Sodium Chloride (Saline Flush) 10 ml FLUSH ASDIRECTED PRN PRN Reason: Keep Vein Open Last Admin: 02/16/19 09:06 Dose: 10 ml Labs: Laboratory Tests 02/16/19 02/16/19 02/16/19 Range/Units 08:42 08:42 09:22 WBC 9.4 (5.0-10.0) 10^3/uL RBC 4.34 (4.2-5.4) 10^6/uL Hgb 13.1 (12.0-16.0) g/dL Hct 39.7 (37.0-47.0) % MCV 91.5 (80-100) fL MCH 30.2 (27.0-34.0) pg MCHC 33.0 (33.0-35.0) g/dL Plt Count 305 D (150-450) 10^3/uL Neut % (Auto) 60.1 (42.2-75.2) % Lymph % (Auto) 26.1 (20.5-50.1) % [place] % (Auto) 9.7 H (2-8) % Eos % (Auto) 3.9 H (1.0-3.0) % Baso % (Auto) 0.2 (0.0-1.0) % Sodium 133 L (135-145) mmol/L Potassium 3.7 (3.6-5.0) mmol/L Chloride 101 (101-111) mmol/L Carbon Dioxide 21.0 (21.0-31.0) mmol/L Anion Gap 14.7 BUN 7 (7-18) mg/dL Creatinine 0.6 (0.6-1.3) mg/dL Est Cr Clr Drug Dosing 124.85 mL/min Estimated GFR (MDRD) > 60 Glucose 89 (74-105) mg/dL Calcium 8.6 (8.4-10.2) mg/dl Urine Color (YELLOW) Urine Appearance (CLEAR) Urine pH (5.0-9.0) Ur Specific [place] (1.005-1.030) Urine Protein (NEGATIVE) Urine Glucose (UA) (NEGATIVE) Urine Ketones (NEGATIVE) Urine Occult Blood (NEGATIVE) Urine Nitrite (NEGATIVE) Urine Bilirubin (NEGATIVE) Urine Urobilinogen (0.2-1.0) mg/dL Ur Leukocyte Esterase (NEGATIVE) Urine HCG, Qual Negative 02/16/19 Range/Units 09:22 WBC (5.0-10.0) 10^3/uL RBC (4.2-5.4) 10^6/uL Hgb (12.0-16.0) g/dL Hct (37.0-47.0) % MCV (80-100) fL MCH (27.0-34.0) pg MCHC (33.0-35.0) g/dL Plt Count (150-450) 10^3/uL Neut % (Auto) (42.2-75.2) % Lymph % (Auto) (20.5-50.1) % [place] % (Auto) (2-8) % Eos % (Auto) (1.0-3.0) % Baso % (Auto) (0.0-1.0) % Sodium (135-145) mmol/L Potassium (3.6-5.0) mmol/L Chloride (101-111) mmol/L Carbon Dioxide (21.0-31.0) mmol/L Anion Gap BUN (7-18) mg/dL Creatinine (0.6-1.3) mg/dL Est Cr Clr Drug Dosing mL/min Estimated GFR (MDRD) Glucose (74-105) mg/dL Calcium (8.4-10.2) mg/dl Urine Color Light yellow (YELLOW) Urine Appearance Slightly cloudy (CLEAR) Urine pH 7.5 (5.0-9.0) Ur Specific [place] 1.015 (1.005-1.030) Urine Protein Negative (NEGATIVE) Urine Glucose (UA) Negative (NEGATIVE) Urine Ketones Negative (NEGATIVE) Urine Occult Blood Negative (NEGATIVE) Urine Nitrite Negative (NEGATIVE) Urine Bilirubin Negative (NEGATIVE) Urine Urobilinogen 0.2 (0.2-1.0) mg/dL Ur Leukocyte Esterase Negative (NEGATIVE) Urine HCG, Qual Meds: Medications Generic Name Dose Route Start Last Admin Trade Name Freq PRN Reason Stop Dose Admin Sodium Chloride 10 ml 02/16/19 08:53 02/16/19 09:06 Saline Flush FLUSH 10 ml ASDIRECTED PRN Administration Keep Vein Open Discontinued Medications Generic Name Dose Route Start Last Admin Trade Name Freq PRN Reason Stop Dose Admin Azithromycin 1,000 mg 02/16/19 09:45 02/16/19 09:53 Zithromax PO 02/16/19 09:46 1,000 mg ONETIME ONE Administration Sodium Chloride 1,000 mls @ 999 mls/hr 02/16/19 08:53 02/16/19 09:06 Normal Saline IV 02/16/19 09:53 999 mls/hr .BOLUS ONE Administration Ceftriaxone Sodium 1 gm/ 50 mls @ 50 mls/hr 02/16/19 09:44 02/16/19 09:53 Sodium Chloride IV 02/16/19 10:43 50 mls/hr ONETIME ONE Administration Iopamidol 75 ml 02/16/19 09:41 02/16/19 10:19 Isovue-300 (61%) IVPUSH 02/16/19 09:42 75 ml ONETIME ONE Administration Ketorolac Tromethamine 30 mg 02/16/19 08:53 02/16/19 09:06 Toradol IVPUSH 02/16/19 08:54 30 mg ONETIME ONE Administration Ondansetron HCl 4 mg 02/16/19 08:53 02/16/19 09:06 Zofran IV 02/16/19 08:54 4 mg ONETIME ONE Administration - Radiology Interpretation Free Text/Narrative:: [facility] Final Radiology Report Call: [phone] assistance Online chat: [email or web address] Name: MALISSA SMITH Age: 23Years F Date: 02/16/2019 SSN: -- : [id number] Study: CT ABDOMEN/PELVIS WO &/OR W ONE OR BOTH RGNS Requesting Physician: ISHMAEL REESE Images: 1 Addl Studies: Provided Clinical History: Contrast: Both Contrast Medium: Isovue 300 Contrast Amount: 75 mL Contrast Method: IV Page 1 of 2 EXAM: CT Abdomen and Pelvis Without and With Contrast EXAM DATE/TIME: 02/16/2019 10:11 AM CLINICAL HISTORY: 23 years old, female; Signs and symptoms; Other: Rlq abdominal and RT flank pain. Rebound tenderness, HX kidney stones. TECHNIQUE: Imaging protocol: Axial computed tomography images of the abdomen and pelvis without and with intravenous contrast. Coronal and sagittal reformatted images were created and reviewed. Radiation optimization: All CT scans at this facility use at least one of these dose optimization techniques: automated exposure control; mA and/or kV adjustment per patient size (includes targeted exams where dose is matched to clinical indication); or iterative reconstruction. Contrast material: ISOVUE 300; Contrast volume: 75 ml; Contrast route: IV; COMPARISON: CT Abdomen Pelvis wo Cont 01/28/2019 10:02 PM FINDINGS: ABDOMEN: Liver: Normal. No mass. Gallbladder and bile ducts: Normal. No calcified stones. No ductal dilation. Pancreas: Normal. No ductal dilation. Spleen: Normal. No splenomegaly. Adrenals: Normal. No mass. Kidneys and ureters: Normal. No hydronephrosis. MALISSA SMITH | Final Radiology Report CONFIDENTIALITY STATEMENT This report is intended only for use by the referring physician, and only in accordance with law. If you received this in error, call [phone]. Page 2 of 2 Stomach and bowel: Normal. No obstruction. No mucosal thickening. Appendix: The appendix is enlarged, measuring 9 mm in diameter. The appendix is thickwalled. There is a mild amount of periappendiceal inflammatory change. These findings are new since the previous study. No evidence of perforation or abscess. PELVIS: Bladder: Unremarkable as visualized. Reproductive: There is 2 cm cystic density in the left pelvic adnexa. There is mild myomatous change to the uterus. ABDOMEN and PELVIS: Intraperitoneal space: Normal. No free air. No significant fluid collection. Bones/joints: No acute fracture. No dislocation. Soft tissues: Unremarkable. Vasculature: Normal. No abdominal aortic aneurysm. Lymph nodes: Normal. No enlarged lymph nodes. IMPRESSION: 1. Findings consistent with acute appendicitis. No perforation or abscess. 2. Cystic density in the left pelvic adnexa is probably ovarian in origin. Pelvic ultrasound would be helpful for further evaluation, if clinically indicated. Thank you for allowing us to participate in the care of your patient. Dictated and Authenticated by: Gennaro Perry MD 02/16/2019 11:34 AM Central Time ([place] & [place]) - Re-Assessments/Exams Free Text/Narrative Re-Assessment/Exam: 02/16/19 09:51 While waiting in the ER pt received a phone call from a nurse informing her that she had tested positive for chlamydia. Departure - Departure Time of Disposition: 11:42 (admitted to Dr. Suresh) Disposition: Admitted As Inpatient 65 Clinical Impression: Chlamydia Acute appendicitis Qualifiers: Acute appendicitis type: with localized peritonitis Appendicitis gangrene presence: without gangrene Appendicitis perforation presence: without perforation Appendicitis abscess presence: without abscess Qualified Code(s): K35.30 - Acute appendicitis with localized peritonitis, without perforation or gangrene - Discharge Information *PRESCRIPTION DRUG MONITORING PROGRAM REVIEWED*: No *COPY OF PRESCRIPTION DRUG MONITORING REPORT IN PATIENT THUAN: No Instructions: Chlamydia, Female, [id number] Forms: ED Department Discharge - My Orders Last 24 Hours: My Active Orders 02/16/19 08:53 Peripheral IV Care [RC] . DIRECTED Sodium Chloride 0.9% [Saline Flush] 10 ml FLUSH ASDIRECTED PRN Peripheral IV Insertion Adult [OM.PC] Stat 02/16/19 09:42 Abdomen Pelvis w wo Cont [CT] Urgent - Assessment/Plan Last 24 Hours: My Active Orders 02/16/19 08:53 Peripheral IV Care [RC] . DIRECTED Sodium Chloride 0.9% [Saline Flush] 10 ml FLUSH ASDIRECTED PRN Peripheral IV Insertion Adult [OM.PC] Stat 02/16/19 09:42 Abdomen Pelvis w wo Cont [CT] Urgent"
[2019-02-16] MEDS ORDERED: Sodium Chloride 0.9% 10 ML Syringe FLUSH PRN (08:53)
[2019-02-16] MEDS ORDERED: Ondansetron 4 MG/2 ML SDV IV ONE (08:53)
[2019-02-16] MEDS ORDERED: Ketorolac 30 MG/ML SDV IVPUSH ONE (08:53)
[2019-02-16] MEDS ORDERED: Sodium Chloride 0.9% 1,000 ML IV ONE (08:53)
[2019-02-16 09:07] LABS: ANION GAP 14.7; CHLORIDE,CL 101 mmol/L (101-111); SODIUM,NA 133 mmol/L (135-145)
[2019-02-16] MEDS ORDERED: Iopamidol 612 MG/ML 75 ML Bottle IVPUSH ONE (09:41)
[2019-02-16] MEDS ORDERED: cefTRIAXone 1 GM in Sodium Chloride 0.9% 50 ML IV ONE (09:44)
[2019-02-16] MEDS ORDERED: Azithromycin 250 MG Tab PO ONE (09:45)
[2019-02-16] MEDS ORDERED: Lactated Ringers 1,000 ML IV SCH (12:00)
[2019-02-16] MEDS ORDERED: ceFAZolin 1 GM in Premix Bag 1 BAG IV ONE (12:03)
[2019-02-16] MEDS ORDERED: Succinylcholine 200 MG/10 ML MDV IV ONE (12:26)
[2019-02-16] MEDS ORDERED: Propofol 200 MG/20 ML SDV IV ONE (12:26)
[2019-02-16] MEDS ORDERED: Midazolam 1 MG/ML 2 ML SDV IV ONE (12:26)
[2019-02-16] MEDS ORDERED: Rocuronium 50 MG/5 ML Vial IV ONE (12:26)
[2019-02-16] MEDS ORDERED: fentaNYL 100 MCG/2 ML SDV IV ONE (12:26)
[2019-02-16] MEDS ORDERED: Neostigmine Methylsulfate 10 MG/10 ML MDV IV ONE (12:26)
[2019-02-16] MEDS ORDERED: Glycopyrrolate 0.2 MG/ML 2 ML SDV IV ONE (12:26)
[2019-02-16] MEDS ORDERED: Dexamethasone 4 MG/ML SDV IV ONE (12:26)
[2019-02-16] MEDS ORDERED: Lidocaine 1% with EPINEPHrine 1:100,000 30 ML MDV INJECT ONE (13:40)
[2019-02-16] MEDS ORDERED: Lidocaine 1% with EPINEPHrine 1:100,000 20 ML MDV ONE (13:43)
[2019-02-16] MEDS ORDERED: Acetaminophen/oxyCODONE 325-5 MG Tab PO PRN (15:04)
[2019-02-16 15:45] VITALS: BP 123/59
--- NOTE | 2019-02-16 19:33 | HP ---
INTRODUCTION: This 23-year-old female presented to the emergency room with right upper quadrant abdominal pain that now has migrated to the right lower quadrant. CT scan shows acute appendicitis even though she has a normal white count. She has had a history of kidney stones before and her symptoms started out like this, but now have ended up being different. ALLERGIES: The patient has no allergies. CURRENT MEDICATIONS: None. PAST SURGICAL HISTORY: Prior surgeries include section. FAMILY HISTORY AND SOCIAL HISTORY: She has had a and is a working mother. 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 REVIEW OF SYSTEMS: Negative for all systems. PHYSICAL EXAMINATION: HEENT: Normal. She does wear glasses. Chest: Lungs are clear bilaterally. Heart: Normal sinus rhythm. Abdomen: Soft in the upper quadrants but maximally tender in the right lower quadrant. She has a positive Rovsing sign. Extremities: Normal. Neurologic: Intact. ASSESSMENT: Acute appendicitis. PLAN: I discussed the risks, benefits, and expected outcomes of a laparoscopic appendectomy with this patient. Plan on proceeding today at [facility]. [facility] /[id number]
--- NOTE | 2019-02-16 20:49 | OR ---
DATE: 02/16/2019 PREOPERATIVE DIAGNOSIS: Acute appendicitis. POSTOPERATIVE DIAGNOSIS: Right salpingitis of the fallopian tube. PROCEDURE: Laparoscopic appendectomy. ANESTHESIA: General. ESTIMATED BLOOD LOSS: Minimum. SPECIMEN: Appendix. OPERATIVE FINDINGS: Normal appendix; however, a distal third of her right tube appears to be moderately swollen, possibly consistent with a salpingitis concomitant with her known chlamydia. INDICATION FOR PROCEDURE: This 23-year-old female presented to the emergency room with right lower quadrant abdominal pain. CT scan was compatible with acute appendicitis. However, looking at this, they were probably measuring this distal fallopian tube and not the appendix. She did have a normal white count, but a markedly physical examination compatible with appendicitis. PROCEDURE IN DETAIL: After adequate preparation, an infraumbilical 5 mm trocar was placed. Two other trocars were placed under direct vision, a 5 mm epigastric port site and a 12 mm suprapubic. She did have adhesions of the omentum down to the prior incision. These were left alone. The appendix was identified and appeared to be normal. The mesentery of the appendix was cauterized down to the base of the appendix and then a stapling device with a blue load was used to transect the appendix from the cecum. The appendix was brought out through the suprapubic trocar site and retrieved. Examination of the intestine did not show any mesenteric adenitis or Meckel's diverticulum. She did not have any other adhesions of the small bowel consistent with obstruction. She did have, however, an abnormal right fallopian tube. The ovary did not seem to be cystic. I asked Dr. Cornelio Kelley from the [facility] to come in and look at this operative guevara. He suggested that we culture the ostomy opening of the right tube, but for the present time, just continue with aggressive treatment of her chlamydia and not resect or open up any of this tube. No other intraabdominal abnormalities were noted. The trocars were removed. The abdomen desufflated and the skin was closed with Vicryl. [facility] /[id number]
--- NOTE | 2019-02-16 22:10 | CONS ---
SERVICE DATE: 02/16/2019 This is an intraoperative consultation that has been asked for by Dr. Suresh. I have been asked to see the patient while she is under anesthesia and undergoing laparoscopic appendectomy. I have also reviewed the emergency room records of Dr. Medina from today 02/16/2019 and have also been able to personally later visit with Dr. Medina. Also some of the history is from her boyfriend who is in the surgical waiting room. The patient as mentioned above herself is under general anesthesia. It is known that she is a 23-year-old apparently 2, para 2 patient with 2 prior sections. I believe, she does have a 2-year-old and a 3-year-old child at home. Dr. Suresh has noticed some abnormalities of the right adnexal area. The right ovary itself is smooth, mobile, and normal. The right fallopian tube, however, does have some degree of edema and slight erythema to it. Also, there appears to be some degree of tortuosity to the tube. There was a small amount of fine filmy adhesions, but the tube is otherwise very mobile. In the left adnexal area, the tube and ovary are not well visualized because of some dense omental adhesions on top of the adnexum. Interestingly, I also see that recent CT scan did suggest a possible 2 cm cystic density in the left adnexal area. Future pelvic ultrasound is of course suggested by the radiologist, and I certainly agree with this, and this will be ordered in the future. It was also reported by the emergency room that the patient was notified today from her healthcare providers at [facility] that she has tested positive for chlamydia. She was treated in the emergency room just this morning with 1 g of the Zithromax p.o. and 1 g IM of ceftriaxone for this. Indeed, these findings of inflammation on the left fallopian tube would be compatible with recent chlamydia salpingitis. Dr. Suresh and I have discussed the intraoperative findings very thoroughly, and we have also taken cultures from the orifice of the left fallopian tube for aerobes and anaerobes to make sure that no other pathogens are identified in addition to the chlamydia. I have had a discussion with her significant other in the surgical waiting room, and we will keep in close contact with and contact the patient when she is in the postoperative period and make sure that she returns for repeat cervical cultures and repeat transvaginal pelvic ultrasound to also further evaluate the possible 2 cm cystic area in the left adnexum. Thank you very much, Dr. Suresh, for asking us to see this very interesting patient. [facility] /[id number]
== END 2019-02-16 15:54 | disposition home or self-care (01) ==
LOC: DL.SDS 08:28 → DL.ED 08:28 → DL.SDS 12:25
PROVIDERS: ATTEND Surgery
DX: K35.80 Unspecified acute appendicitis (principal); N70.91 Salpingitis, unspecified; Z87.442 Personal history of urinary calculi
CPT/HCPCS: 36415; 44970; 74178; 80048; 80305; 81003; 81025; 85025; 87070; 87075; 96361; 96374; 96375; 99285; A4217; A9270; J0330; J0690; J0696; J1100; J1885; J2250; J2405; J2704; J2710; J3010; J3490; J7030; J7050; J7120; Q9967

== ENCOUNTER 2020-07-10 21:30 | Emergency (ER) | payer MEDICAID ==
[2020-07-10 21:30] VITALS: BP 112/88; PULSE 78
[2020-07-10 21:52] LABS: ANION GAP 18.1 mEq/L (7-13); CHLORIDE,CL 107 mmol/L (98-107); SODIUM,NA 146 mmol/L (136-145)
[2020-07-10 21:58] LABS: ACETAMINOPHEN 0 ug/mL (10-30 (Therapeutic))
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
[2020-07-10] MEDS ORDERED: metroNIDAZOLE 250 MG Tab PO ONE (23:25)
[2020-07-10] MEDS ORDERED: Nitrofurantoin Monohydrate/Macrocrystalline 100 MG Cap PO ONE (23:26)
== END 2020-07-10 23:33 | disposition home or self-care (01) ==
LOC: DL.ED 21:30
DX: F10.920 Alcohol use, unspecified with intoxication, uncomplicated (principal); N30.01 Acute cystitis with hematuria; N76.0 Acute vaginitis
CPT/HCPCS: 36415; 80053; 80305; 80307; 81001; 81025; 85025; 87086; 99285; A9270; 87088; 87186

== ENCOUNTER 2024-09-16 06:47 | Emergency (ER) | payer OTHER ==
[2024-09-16 06:39] LABS: BASOPHILS PERCENT AUTO 0.1 % (0.0-1.0); EOSINOPHILS PERCENT AUTO 0.1 % (1.0-3.0); HEMATOCRIT 42.9 % (37.0-47.0); HEMOGLOBIN 14.1 g/dL (12.0-16.0); LYMPHOCYTES PERCENT AUTO 8.6 % (20.5-50.1); MEAN CORPUSCULAR HEMOGLOBIN 31.1 pg (27.0-34.0); MEAN CORPUSCULAR HGB CONC 32.9 g/dL (33.0-35.0); MEAN CORPUSCULAR VOLUME 94.7 fL (80-100); MONOCYTES PERCENT AUTO 7.9 % (2-8); NEUTROPHILS PERCENT AUTO 83.3 % (42.2-75.2); PLATELET COUNT,PLT 352 10^3/uL (150-450); RED BLOOD CELL COUNT 4.53 10^6/uL (4.2-5.4); WHITE BLOOD CELL COUNT,WBC 20.5 10^3/uL (5.0-10.0)
[2024-09-16 06:47] LABS: APPEARANCE,URINE CLEAR (CLEAR); BILIRUBIN,URINE NEGATIVE (NEGATIVE); COLOR,URINE YELLOW (YELLOW); GLUCOSE,URINE NEGATIVE (NEGATIVE); KETONES,URINE NEGATIVE (NEGATIVE); LEUKOCYTE ESTERASE,URINE NEGATIVE (NEGATIVE); NITRITE,URINE NEGATIVE (NEGATIVE); OCCULT BLOOD,URINE MODERATE (NEGATIVE); PROTEIN,URINE 100 (NEGATIVE); UROBILINOGEN,URINE 0.2 mg/dL (0.2-1.0)
[2024-09-16 06:52] LABS: AMPHETAMINES,URINE POSITIVE (NEGATIVE); BARBITURATES,URINE NEGATIVE (NEGATIVE); BENZODIAZEPINE,URINE NEGATIVE (NEGATIVE); MDMA (ECSTASY), URINE NEGATIVE (NEGATIVE); METHADONE,URINE NEGATIVE (NEGATIVE); METHAMPHETAMINES,URINE POSITIVE (NEGATIVE); OPIATES,URINE NEGATIVE (NEGATIVE); OXYCODONE,URINE NEGATIVE (NEGATIVE); PHENCYCLIDINE,URINE NEGATIVE (NEGATIVE); TCA,URINE NEGATIVE (NEGATIVE)
[2024-09-16 06:53] LABS: ALANINE AMINOTRANSFERASE,ALT 99 U/L (14-59); ALKALINE PHOSPHATASE 97 U/L (46-116); ANION GAP 15.3 mEq/L (7-13); ASPARTATE AMNIOTRANSFERASE,AST 192 U/L (15-37); BILIRUBIN TOTAL 0.4 mg/dL (0.2-1.0); BLOOD UREA NITROGEN,BUN 8 mg/dL (7-18); BUN/CREATININE RATIO 11.3 (No establ ref range); CALCIUM 8.6 mg/dL (8.5-10.1); CARBON DIOXIDE,CO2 26 mmol/L (21-32); CHLORIDE,CL 109 mmol/L (98-107); CREATININE 0.71 mg/dL (0.55-1.02); ETHANOL BLOOD MEDICAL 173 mg/dL (0); GLUCOSE RANDOM 91 mg/dL (70-99); MAGNESIUM 1.9 mg/dL (1.8-2.4); POTASSIUM,K 3.3 mmol/L (3.5-5.1); SODIUM,NA 147 mmol/L (136-145)
[2024-09-16 06:54] LABS: ESTIMATED GFR 117 mL/min (>=60)
[2024-09-16 06:56] LABS: INR 0.9 (0.9-1.2); PROTHROMBIN TIME 9.4 SEC (9.0-12.0)
[2024-09-16] MEDS: Sodium Chloride 0.9% 1,000 ML IV ONE (06:58)
[2024-09-16] MEDS: Ondansetron 4 MG/2 ML SDV IVPUSH ONE ×2 (06:58→11:24)
[2024-09-16] MEDS: Morphine 2 MG/ML SYRINGE IVPUSH ONE ×2 (06:58→11:26)
[2024-09-16 07:30] LABS: HCG QUALITATIVE,SERUM NEGATIVE (NEGATIVE)
[2024-09-16 07:35] LABS: BACTERIA,URINE FEW /HPF (0-FEW/HPF); EPITHELIAL CELLS,URINE MODERATE /HPF (NOT SEEN); MUCUS,URINE FEW /LPF (NOT SEEN); WBC,URINE 0-5 /HPF (0-5/HPF)
[2024-09-16] MEDS: Iopamidol 612 MG/ML 100 ML Bottle IVPUSH ONE ×2 (08:58→09:30)
[2024-09-16] MEDS: Potassium Chloride 20 MEQ in Premix Bag 1 BAG IV ONE (08:58)
[2024-09-16] MEDS: Lidocaine 1% with EPINEPHrine 1:100,000 20 ML MDV INJECT ONE (10:26)
[2024-09-16] MEDS: Diphtheria,Pertussis(Acell),Tetanus Vaccine 0.5 ML Syringe IM ONE (10:33)
[2024-09-16] MEDS ORDERED: Naloxone 2 MG/2 ML Syringe IVPUSH PRN (11:07)
[2024-09-16] MEDS: Ondansetron 4 MG/2 ML SDV ONE (11:43)
== END 2024-09-16 11:38 ==
LOC: DL.ED 06:47
DX: S12.500A Unspecified displaced fracture of sixth cervical vertebra, initial encounter for closed fracture (principal); S12.600A Unspecified displaced fracture of seventh cervical vertebra, initial encounter for closed fracture; S01.91XA Laceration without foreign body of unspecified part of head, initial encounter; F10.129 Alcohol abuse with intoxication, unspecified; M79.631 Pain in right forearm; D72.829 Elevated white blood cell count, unspecified; E87.6 Hypokalemia; E87.0 Hyperosmolality and hypernatremia; F17.290 Nicotine dependence, other tobacco product, uncomplicated; Z79.899 Other long term (current) drug therapy; V49.59XA Passenger injured in collision with other motor vehicles in traffic accident, initial encounter; Y90.6 Blood alcohol level of 120-199 mg/100 ml; Z23 Encounter for immunization
CPT/HCPCS: 12002; 36415; 70450; 71260; 72125; 73060; 73090; 74177; 80053; 80305; 80307; 81001; 81025; 83735; 84484; 84703; 85025; 85610; 90471; 90715; 93005; 96361; 96365; 96366; 96375; 96376; 99285; J2270; J2405; J3480; J7030; Q9967; J3490